=== PATIENT | male | born 1975 | race Caucasian/White ===

== ENCOUNTER 2023-06-14 16:08 | Outpatient (CLI) | payer BC, SELFPAY ==
--- NOTE | ~2023-06-14 | XR_ITS ---
XR abdomen/kub 1V 06/14/2023 16:22 Indication: Vomiting and constipation Procedure: 2 view chest Comparison: No prior studies for comparison. Findings: Bowel pattern nonobstructive. No acute osseous abnormality. Mild lumbar spondylosis. Mild d extroscoliosis. No abnormal calcifications. Impression: 1: No acute abdominal abnormality. Reviewed, dictated and finalized at location L. Impression: 1: No acute abdominal abnormality.
[2023-06-14 17:30] LABS: Basophils Absolute Auto 0.1 K/mm3 (0.0-0.1); Basophils Percent Auto 1.2 % (0.2-1.2); Eosinophils Absolute Auto 0.2 K/mm3 (0-0.3); Eosinophils Percent Auto 2.1 % (0-4.4); Hematocrit 48.3 % (42.0-52.0); Hemoglobin 16.3 g/dL (14.0-18.0); Immature Granulocyte Absolute 0.04 K/mm3 (0.00-0.031); Immature Granulocyte Percent A 0.4 % (0-0.5); Lymphocytes Percent Auto 31.5 % (18.3-44.2); Mean Corpuscular HGB Conc 33.7 g/dl (32-36); Mean Corpuscular Hemoglobin 30.1 pg (26-34); Mean Corpuscular Volume 89.3 fl (80-100); Mean Platelet Volume 10.7 fl (7.4-10.4); Monocytes Percent Auto 10.5 % (2.6-8.5); Neutrophils Percent Auto 54.3 % (45.5-73.1); Platelet Count Result 323 k/mm3 (150-375); Red Blood Count 5.41 M/mm3 (4.6-6.20); Red Cell Distribution Width 12.4 % (11.5-14.5); White Blood Count 9.2 K/mm3 (4.5-10.0)
[2023-06-14 18:01] LABS: Alanine Aminotransferase 56 U/L (6-50); Alkaline Phosphatase 59 U/L (38-126); Amylase 66 U/L (30-110); Anion Gap 11 mmol/L (8-16); Aspartate Amino Transferase 109 U/L (17-59); Bilirubin,Total 1.1 mg/dL (0.2-1.3); Blood Urea Nitrogen 23 mg/dL (9-20); Calcium 9.5 mg/dL (8.4-10.2); Carbon Dioxide 21 mmol/L (22-30); Chloride 104 mmol/L (98-107); Estimated Glomerular Filt Rate > 60; Glucose 115 mg/dL (65-110); Lipase 160 U/L (23-300); Potassium 3.8 mmol/L (3.4-5.0); Sodium 136 mmol/L (137-145)
== END 2023-06-14 16:09 | disposition home or self-care (01) ==
PROVIDERS: PCP Family Medicine; Visit Provider Physician Assistant
DX: R11.10 Vomiting, unspecified (principal); K59.00 Constipation, unspecified
CPT/HCPCS: 36415; 74018; 80053; 82150; 83690; 85025

== ENCOUNTER 2024-12-08 11:27 | Outpatient (CLI) | payer OTHER, BC, SELFPAY ==
--- NOTE | ~2024-12-08 | XR_ITS ---
EXAMINATION: XR hip BI 2V w AP pelvis DATE: 12/08/2024 11:49 INDICATION: Pain in right hip. TECHNIQUE: An anteroposterior view of the pelvis on 2 radiographs and 2 views of each hip were obtain ed. COMPARISON: None. FINDINGS: There is lumbar dextrocurvature and mild spondylosis. No fracture. There is mild osteoarthr itis of the hips. IMPRESSION: 1. Mild osteoarthritis of the hips. Reviewed, dictated and finalized at location A.
== END 2024-12-08 11:28 | disposition home or self-care (01) ==
LOC: MICIMG 11:29
PROVIDERS: PCP Family Medicine; Visit Provider Physician Assistant
DX: M16.0 Bilateral primary osteoarthritis of hip (principal)
CPT/HCPCS: 73521